=== PATIENT | female | born 2005 | race Caucasian/White ===

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

== ENCOUNTER 2024-03-09 09:30 | Outpatient (CLI) | payer BC | END 2024-03-09 09:31 | disposition home or self-care (01) | LOC: PET 09:30 | PROVIDERS: ATTEND Internal Medicine Hematology & Oncology | DX: C81.01 Nodular lymphocyte predominant Hodgkin lymphoma, lymph nodes of head, face, and neck (principal); R59.0 Localized enlarged lymph nodes | CPT/HCPCS: 78815; A9552 ==

== ENCOUNTER 2024-05-09 15:53 | Emergency (ER) | payer BC ==
[2024-05-09] MEDS ORDERED: Acetaminophen 500 MG TAB ONE (18:34)
[2024-05-09] MEDS ORDERED: Metoclopramide HCl 10 MG (2 mL) VIAL ONE (18:34)
[2024-05-09 18:39] LABS: #Basophils Less than 0.03 10x3/uL (0.0-0.2); %Basophils 0.1 % (0.0-1.0); %Eosinophils 0.6 % (0.0-10.0); %Lymphocytes 13.8 % (28.0-48.0); %Neutrophils 79.2 % (31.0-61.0); Hemoglobin 14.6 g/dL (12.0-16.0); Mean Corpuscular HGB CONC 35.6 g/dL (32.0-36.0); Mean Corpuscular Hemoglobin 30.9 pg (25.0-35.0); Mean Corpuscular Volume 86.7 fL (78.0-98.0); Mean Platelet Volume 10.1 fL (7.4-10.4); Platelet Count 179 10x3/uL (130-400); RBC Distribution Width 11.9 % (11.5-14.5); Red Blood Cell (RBC) Count 4.73 mill/uL (4.00-5.20)
[2024-05-09 18:53] LABS: ALT (SGPT) 18 U/L (8-55); AST (SGOT) 20 U/L (5-30); Albumin 4.1 g/dL (3.5-5.0); Alkaline Phosphatase 147 U/L (40-100); Anion Gap 19 mmol/L (10-20); BUN (Urea Nitrogen) 11 mg/dL (8.4-21.0); Bilirubin, Total 0.5 mg/dL (0.2-1.2); Calc. Creatinine Clearance 0 mL/min (70-130); Calcium 10.1 mg/dL (7.8-10.44); Carbon Dioxide 21 mmol/L (22-29); Chloride 103 mmol/L (98-107); Estimated GFR 129; Globulin 3.5 g/dL (2.4-3.5); Glucose 76 mg/dL (70-105); Lipase 14 U/L (8-78); Potassium 4.1 mmol/L (3.5-5.1); Protein, Total 7.6 g/dL (6.0-8.3); Sodium 139 mmol/L (136-145)
[2024-05-09 19:05] LABS: Bilirubin Negative (Negative); Blood, Urine Negative (Negative); CAUTI Indications for Culture Pregnancy; Clarity Turbid (Clear); Glucose, Urine (Dipstick) Normal (Negative); Ketone, Urine Greater than 150 mg/dL (Negative); Leukocyte Negative Leu/uL (Negative); Nitrite Negative (Negative); Protein, Urine (Dipstick) 30 mg/dL (Neg-Trace); RBC/HPF 0-3 HPF (0-3); Specific Gravity, Urine 1.036 (1.002-1.036)
[2024-05-09 19:06] LABS: Bacteria/HPF 1+ HPF (None Seen)
[2024-05-09 19:07] LABS: Urine Culture Reflex Yes Yes
== END 2024-05-09 20:00 | disposition home or self-care (01) ==
LOC: ERS 15:53
DX: O21.9 Vomiting of pregnancy, unspecified (principal); O99.891 Other specified diseases and conditions complicating pregnancy; R51.9 Headache, unspecified; C81.90 Hodgkin lymphoma, unspecified, unspecified site; Z3A.08 8 weeks gestation of pregnancy; Z55.0 Illiteracy and low-level literacy
CPT/HCPCS: 80053; 81001; 83690; 84702; 85025; 87086; 96374; J2765

== ENCOUNTER 2024-07-07 00:32 | Emergency (ER) | payer BC ==
[2024-07-07 06:22] LABS: #Basophils 0.01 10x3/uL (0.0-0.2); #Eosinophils 0.06 10x3/uL (0.0-0.7); #Monocytes 0.65 10x3/uL (0.11-0.59); #Neutrophils 7.28 10x3/uL (1.40-6.50); %Basophils 0.1 % (0.0-1.0); %Eosinophils 0.7 % (0.0-10.0); %Monocytes 7.4 % (0.0-4.0); %Neutrophils 83.3 % (31.0-61.0); ALT (SGPT) 14 U/L (8-55); AST (SGOT) 12 U/L (5-30); Albumin 3.2 g/dL (3.5-5.0); Alkaline Phosphatase 104 U/L (40-100); Anion Gap 13 mmol/L (10-20); BUN (Urea Nitrogen) 8 mg/dL (8.4-21.0); Bilirubin, Total 0.3 mg/dL (0.2-1.2); Calc. Creatinine Clearance 0 mL/min (70-130); Calcium 9.5 mg/dL (7.8-10.44); Carbon Dioxide 23 mmol/L (22-29); Chloride 107 mmol/L (98-107); Estimated GFR 128; Globulin 3.3 g/dL (2.4-3.5); Glucose 89 mg/dL (70-105); Hematocrit 37.8 % (36.0-47.0); Hemoglobin 13.3 g/dL (12.0-16.0); Mean Corpuscular HGB CONC 35.2 g/dL (32.0-36.0); Mean Corpuscular Hemoglobin 31.8 pg (25.0-35.0); Mean Corpuscular Volume 90.4 fL (78.0-98.0); Mean Platelet Volume 9.8 fL (7.4-10.4); Platelet Count 210 10x3/uL (130-400); Potassium 4.1 mmol/L (3.5-5.1); Protein, Total 6.5 g/dL (6.0-8.3); RBC Distribution Width 13.3 % (11.5-14.5); Red Blood Cell (RBC) Count 4.18 mill/uL (4.00-5.20); Sodium 139 mmol/L (136-145); White Blood Cell (WBC) Count 8.74 10x3/uL (4.8-10.8)
[2024-07-07 06:23] LABS: RBC Morphology Within Normal Limits
[2024-07-07 06:24] LABS: Bacteria/HPF 2+ HPF (None Seen); Bilirubin Negative (Negative); Blood, Urine Negative (Negative); CAUTI Indications for Culture Dysuria,urgency,freq; Glucose, Urine (Dipstick) Normal (Negative); Ketone, Urine Negative (Negative); Leukocyte 25 Leu/uL (Negative); Nitrite Negative (Negative); Protein, Urine (Dipstick) 10 mg/dL (Neg-Trace); RBC/HPF 0-3 HPF (0-3); Specific Gravity, Urine 1.026 (1.002-1.036); Urine Culture Reflex No No; Urobilinogen Normal mg/dL (Less than 2)
[2024-07-07 06:25] LABS: Clarity Hazy (Clear)
== END 2024-07-07 04:50 | disposition home or self-care (01) ==
LOC: ERS 00:32
DX: O23.42 Unspecified infection of urinary tract in pregnancy, second trimester (principal); O47.02 False labor before 37 completed weeks of gestation, second trimester; N39.0 Urinary tract infection, site not specified; Z3A.18 18 weeks gestation of pregnancy; Z55.0 Illiteracy and low-level literacy; Z79.899 Other long term (current) drug therapy
CPT/HCPCS: 80053; 81001; 85025; 99284

== ENCOUNTER 2025-04-21 08:00 | Outpatient (CLI) | payer BC | END 2025-04-21 08:01 | disposition home or self-care (01) | LOC: PET 08:00 | PROVIDERS: ATTEND Internal Medicine Hematology & Oncology | DX: C81.01 Nodular lymphocyte predominant Hodgkin lymphoma, lymph nodes of head, face, and neck (principal); R59.0 Localized enlarged lymph nodes | CPT/HCPCS: 78815; A9552 ==

== ENCOUNTER 2025-08-24 08:00 | Outpatient (CLI) | payer BC | END 2025-08-24 08:01 | disposition home or self-care (01) | LOC: PET 08:00 | PROVIDERS: ATTEND Internal Medicine Hematology & Oncology | DX: C81.01 Nodular lymphocyte predominant Hodgkin lymphoma, lymph nodes of head, face, and neck (principal); R59.0 Localized enlarged lymph nodes | CPT/HCPCS: 78815; A9552 ==